=== PATIENT | female | born 2000 | race African-American/Black ===

== ENCOUNTER → 2023-12-26 17:07 | Outpatient (REF) | payer BC, SELFPAY | LOC: RAD 17:07 | PROVIDERS: ATTENDING PHYSICIAN Family Medicine | DX: K59.00 Constipation, unspecified (principal) | CPT/HCPCS: 74018 ==

== ENCOUNTER → 2023-12-31 12:06 | Outpatient (REF) | payer BC, SELFPAY ==
[2023-12-31 17:15] LABS: Blood Urea Nitrogen 9 mg/dl (7-17); Calcium 9.6 mg/dl (8.4-10.2); Carbon Dioxide 25 mmol/L (22-30); Chloride 106 mmol/L (98-107); Glucose 96 mg/dl (70-99); Potassium 4.4 mmol/L (3.5-5.1); Sodium 138 mmol/L (135-145); eGFR > 60.00
== END ==
LOC: CLAB 12:06
PROVIDERS: ATTENDING PHYSICIAN Family Medicine
DX: K59.09 Other constipation (principal)
CPT/HCPCS: 36415; 80048

== ENCOUNTER → 2024-01-01 11:02 | Outpatient (REF) | payer BC, SELFPAY | LOC: RAD 11:02 | PROVIDERS: ATTENDING PHYSICIAN Family Medicine | DX: K59.09 Other constipation (principal) | CPT/HCPCS: 74177; Q9967 ==

== ENCOUNTER 2024-01-12 13:19 | Emergency (ER) | payer BC, SELFPAY ==
[2024-01-12 13:26] VITALS: BP 117/75
--- NOTE | 2024-01-12 15:04 | ED.GENMED ---
History of Present Illness
General
Chief Complaint: Bowel Problem
Source: patient
Exam Limitations: none
Time Seen by Provider: 01/12/24 13:36
Nursing documentation reviewed up to this point in time: agreed with
Travel History
Have you had any contact with someone who has COVID-19?: No
Do you have any symptoms of coronavirus? Fever > 100 degrees, chills, cough, shortness of breath, sore throat, loss of taste or smell, muscle aches, or headache?: No
History of Present Illness
History of Present Illness:
Patient with history of constipation, presents to ED secondary to inability to have bowel movement over the past 3 weeks along with abdominal pain and early satiety as well as nausea sensation. Denies fever or chills. Denies vomiting or diarrhea.
Patient is currently taking number of cduo-bta-lqhnhgd medications as well as prescribed Linzess, as prescribed by her GI physician. Patient is scheduled for colonoscopy in 2 weeks.
Review of Systems
Review of Systems
Allergies reviewed?: Yes
All Other Systems: ROS reviewed and negative except as documented in HPI and ROS
Constitutional: Reports no symptoms
EENT: Reports no symptoms
Respiratory: Reports no symptoms
Cardiac: Reports no symptoms
ABD/GI: Reports abdominal pain, nausea and constipated; Denies vomiting or diarrhea
: Reports no symptoms
Musculoskeletal: Reports no symptoms
Skin: Reports no symptoms
Neurological: Reports no symptoms
Phy Exam
Physical Exam
Physical Exam:
Physical Exam
General: mild distress, not acutely ill. afebrile.
Head: nc/at. eomi
Neck: supple. normal range of motion.
Abdomen: normal bowel sounds. not tender. rectal exam (MARA Swanson, at bedside): no stool noted.
Neuro: alert and oriented. no focal neurological deficits
Skin: no rash
Psychiatric: well kept. interactive and cooperative
Extremities: no edema. no calf tenderness.
Course
Orders/Labs/Results
Orders:
Orders
01/12/24 13:49
Enema- Treatment ONCE
Type: Milk of Molasses
01/12/24 15:50
0.9% Sodium Chloride 1000 ml [Nss] 1,000 ml IV BOLUS
Diphenhydramine [Benadryl] 12.5 mg IV NOW STA
Metoclopramide [Reglan] 10 mg IV NOW STA
01/12/24 16:13
Pantoprazole [Protonix IV] 40 mg IV NOW STA
01/12/24 16:35
Basic Metabolic Panel Urgent
Complete Blood Count/No Diff Urgent
HCG, Serum Qualitative Screen Urgent
Comment: ADD ON
Magnesium Urgent
01/12/24 16:40
Add On- LAB Urgent
Tests Added?: serum B-HCG
01/12/24 17:02
Morphine Sulfate 2 mg IV NOW STA
01/12/24 17:13
CR Obstruct Series W/pa Chest Urgent
Comment:
Reason For Exam: abdominal pain w constipation
Abnormal Lab Results
01/12/24
16:35
RBC 5.51 H 10^6/uL
(4.20-5.40)
MCV 78.8 L fL
(81.0-99.0)
MCH 26.3 L pg
(27.0-31.0)
01/12/24 16:35
01/12/24 16:35
Vital Signs
Initial and Last Documented VS:
Initial Vital Signs
Temp Pulse Resp BP Pulse Ox
97 F 105 18 117/75 100
01/12/24 13:26 01/12/24 13:26 01/12/24 13:26 01/12/24 13:26 01/12/24 13:26
Last Documented Vital Signs
Temp Pulse Resp BP Pulse Ox
97 F 81 16 107/73 98
01/12/24 13:26 01/12/24 17:53 01/12/24 17:53 01/12/24 17:53 01/12/24 17:53
MDM/Problems Addressed
MDM/Problems Addressed:
Patient given milk molasses enema without improvement symptoms. In fact, patient reported increased abdominal cramping sensation along with dizziness during bowel movement. Patient only able to produce liquid stool content.
Blood work ordered and IV fluid administered.
Discussed with Dr. Sofia, GI physician. Recommends obtaining abdominal x-ray, to make sure that there is no evidence of obstructive process. If not, patient can be discharged home as patient will be starting bowel prep in 2 days for scheduled
colonoscopy on of next week.
X-ray: no acute findings.
*Critical Care Note
Total Time (30-74mins, 75-104mins- exclusive of procedures): Not Applicable
ED Attending Note
-
Portions of this chart may have been created with voice recognition software.� Occasional wrong word or��sound alike� substitutions may have occurred due to the inherent limitations of voice recognition software.
Discharge Plan
Departure
Patient Disposition: Home (Routine Discharge)
Date of Disposition: 01/12/24
Time of Disposition: 17:40
Patient with high blood pressure during this ER visit?: No
Discharge Problem:
Constipation
Instructions: Constipation, Adult (DC)
Referrals:
Marilyn Cristina DO [Family Provider] -
Yusra Sofia MD [Active] -
Activity Restrictions/Additional Instructions:
As discussed, please follow-up with your GI physician, as scheduled, for further evaluation and treatment.
Interventions
Interventions:
*Risk Screen - Suicide Last Done: 01/12/24 15:09
*General Assessment Last Done: 01/12/24 15:09
*Neglect/Abuse Screening Last Done: 01/12/24 15:09
ED- Fall Risk Assessment Last Done: 01/12/24 17:58
*ED COVID-19 Vaccine History Last Done: 01/12/24 13:28
*Nursing Disposition Last Done: 01/12/24 17:58
DG-Nzkils-Uzvkgnnaek Assessment Last Done: 01/12/24 15:09
Discharge Date and Time
Discharge Date/Time: 01/12/24 17:59
Print Language: LITHUANIAN
[2024-01-12 15:09] VITALS: BMI 28.8
[2024-01-12] MEDS: NSS 1000 IV (16:36)
[2024-01-12] MEDS: PROTONIX IV 40 MG IV (16:36)
[2024-01-12] MEDS: BENADRYL 12.5 MG IV (16:40)
[2024-01-12] MEDS: REGLAN 10 MG IV (16:42)
[2024-01-12 16:49] LABS: Hematocrit 43.4 % (37.0-47.0); Hemoglobin 14.5 g/dL (12.0-16.0); Mean Corp Hgb Conc. 33.4 g/dL (33.0-37.0); Mean Corpuscular Hgb 26.3 pg (27.0-31.0); Mean Corpuscular Volume 78.8 fL (81.0-99.0); Mean Platelet Volume 9.6 fL (7.4-10.4); Platelet Count 220 10^3/uL (130-400); Red Blood Cell Count 5.51 10^6/uL (4.20-5.40); Red Cell Dist. Width 12.9 % (11.5-14.5); White Blood Cell Count 6.5 10^3/uL (4.8-10.8)
[2024-01-12 17:01] VITALS: BP 115/73
[2024-01-12 17:03] LABS: Blood Urea Nitrogen 9 mg/dl (7-17); Calcium 9.9 mg/dl (8.4-10.2); Carbon Dioxide 24 mmol/L (22-30); Chloride 106 mmol/L (98-107); Estimated Creatinine Clearance > 125 ml/min; Glucose 87 mg/dl (70-99); Magnesium 2.2 mg/dl (1.6-2.3); Sodium 138 mmol/L (135-145); eGFR > 60.00
[2024-01-12] MEDS: MORPHINE SULFATE 2 MG IV (17:07)
[2024-01-12 17:11] LABS: HCG, Serum Qualitative Screen Negative
[2024-01-12 17:47] VITALS: BP 107/73
[2024-01-12 17:53] VITALS: BP 107/73
== END 2024-01-12 17:59 | disposition home or self-care (01) ==
LOC: EMR 13:19
PROVIDERS: EMERGENCY PHYSICIAN Emergency Medicine; FAMILY PHYSICIAN Family Medicine
DX: K59.00 Constipation, unspecified (principal); R42 Dizziness and giddiness; R10.9 Unspecified abdominal pain; R11.0 Nausea; R68.81 Early satiety
CPT/HCPCS: 99284; 96374; 96375 ×3; 96361; 74022; 80048; 83735; 84703; 85027

== ENCOUNTER → 2024-01-17 06:35 | Day surgery (SDC) | payer BC, SELFPAY | LOC: GI 06:35 | PROVIDERS: ATTENDING PHYSICIAN Internal Medicine Gastroenterology; FAMILY PHYSICIAN Family Medicine | DX: R19.4 Change in bowel habit (principal); K64.8 Other hemorrhoids; R10.84 Generalized abdominal pain; K44.9 Diaphragmatic hernia without obstruction or gangrene; K31.89 Other diseases of stomach and duodenum | CPT/HCPCS: 45380; 43239; 88305; 88342 ==